=== PATIENT | female | born 1980 | race Caucasian/White ===

== ENCOUNTER 2019-04-27 02:45 | Emergency (ER) | payer BC ==
[2019-04-27] MEDS ORDERED: Fentanyl 100 MCG/2 ML VIAL ONE ×2 (03:13→08:55)
[2019-04-27] MEDS ORDERED: Ketorolac Tromethamine 30 MG/ML VIAL ONE (04:22)
[2019-04-27] MEDS ORDERED: Morphine 4 MG/ML VIAL ONE (04:22)
[2019-04-27] MEDS ORDERED: Gadobenate Dimeglumine 529 MG/1 ML (20ML VIAL) ONE (09:42)
--- NOTE | 2019-04-27 10:00 | MRI ---
MRI Lumbar Spine W WO Con History: [Leg pain.] Comparison: CT abdomen and pelvis prior day. Findings: No hydronephrosis. No retroperitoneal periaortic adenopathy. Paraspinal muscles are symmetr ic. No marrow infiltrative process. Asymmetric postsurgical change of the posterior paraspinal musculatur e. There is also edema within the left quadratus lumborum muscle. Conus medullaris terminates near the superior endplate of L2. Levels are as follows: L1/L2: Normal disc. No neural foraminal or spinal canal narrowing. L2/L3: Normal disc. Mild facet arthropathy. No neural foraminal or spinal canal narrowing. L3/L4: Normal disc. Moderate facet arthrosis. No neural foraminal or spinal canal narrowing. L4/L5: Low-grade broad-based posterior disc osteophyte complex. Moderate facet arthrosis. Moderate le ft and mild right neural foraminal narrowing. L5/S1: Prior discectomy change. Moderate facet arthropathy. There are effusions within both facet lisa nts. Anterior blocking screw. There is enhancing granulation tissue along the left exiting nerve root. Impression: Postsurgical change L5-S1 with enhancing granulation tissue along the left exiting nerve root. No migration of the discectomy spacers.
[2019-04-27] MEDS ORDERED: Dexamethasone 10 MG/ML VIAL ONE (10:25)
== END 2019-04-27 13:30 | disposition home or self-care (01) ==
LOC: ERS 02:45
DX: M96.89 Other intraoperative and postprocedural complications and disorders of the musculoskeletal system (principal); M54.16 Radiculopathy, lumbar region; K21.9 Gastro-esophageal reflux disease without esophagitis; F41.9 Anxiety disorder, unspecified
CPT/HCPCS: 72158; 96365; 96366; 96375; 96376; J1100; J1885; J2270; J3010

== ENCOUNTER 2023-12-21 10:24 | Emergency (ER) | payer BC ==
[2023-12-21] MEDS ORDERED: Acetaminophen 500 MG TAB ONE (11:43)
[2023-12-21 12:32] LABS: Bacteria/HPF 4+ HPF (None Seen); Bilirubin Negative (Negative); Blood, Urine Negative (Negative); CAUTI Indications for Culture Dysuria,urgency,freq; Clarity Clear (Clear); Glucose, Urine (Dipstick) Normal (Negative); Ketone, Urine Negative (Negative); Leukocyte Negative Leu/uL (Negative); Nitrite Negative (Negative); Protein, Urine (Dipstick) Negative (Neg-Trace); RBC/HPF 0-3 HPF (0-3); Specific Gravity, Urine 1.006 (1.002-1.036); Squamous Epithelial 0-3 HPF (0-3); Urobilinogen Normal mg/dL (Less than 2); WBC/HPF 0-3 HPF (0-3); pH, Urine 5.5 (5.0-9.0)
[2023-12-21 12:33] LABS: #Eosinphils 0.1 thou/uL (0.0-0.7); #Monocytes 0.3 thou/uL (0.11-0.59); %Basophils 0.5 % (0.0-1.0); %Eosinophils 1.4 % (0.0-10.0); %Lymphocytes 22.1 % (21.0-51.0); %Monocytes 5.3 % (0.0-10.0); %Neutrophils 70.3 % (42.0-75.0); Hematocrit 30.3 % (36.0-47.0); Mean Corpuscular HGB CONC 29.7 g/dL (32.0-36.0); Mean Corpuscular Hemoglobin 20.5 pg (27.0-31.0); Mean Corpuscular Volume 68.9 fl (78.0-98.0); Mean Platelet Volume 9.2 fL (7.4-10.4); Platelet Count 196 10x3/uL (130-400); RBC Distribution Width 17.5 % (11.5-14.5); White Blood Cell (WBC) Count 5.7 10x3/uL (4.8-10.8)
[2023-12-21 12:34] LABS: Urine Culture Reflex No No
[2023-12-21 12:46] LABS: BHCG - Serum Negative (NEGATIVE); Pregs Control Background? CLEAR/WHITE (CLR/WHITE); Pregs Control Bar Appear? YES (CONTROL BAR)
[2023-12-21 13:02] LABS: ALT (SGPT) 13 U/L (8-55); AST (SGOT) 17 U/L (5-34); Albumin 4.7 g/dL (3.5-5.0); Alkaline Phosphatase 73 U/L (40-110); Anion Gap 13 mmol/L (10-20); BUN (Urea Nitrogen) 9 mg/dL (7.0-18.7); Bilirubin, Total 0.4 mg/dL (0.2-1.2); Calc. Creatinine Clearance 0 mL/min (70-130); Calcium 9.2 mg/dL (7.8-10.44); Carbon Dioxide 23 mmol/L (22-29); Chloride 108 mmol/L (98-107); Estimated GFR 88; Globulin 2.9 g/dL (2.4-3.5); Glucose 84 mg/dL (70-105); Lipase 22 U/L (8-78); Potassium 3.6 mmol/L (3.5-5.1); Protein, Total 7.6 g/dL (6.0-8.3); Sodium 140 mmol/L (136-145)
[2023-12-21 13:07] LABS: Anisocytosis SLIGHT = 6-15 cells HPF (0-5); CellaVision Operator ID LAB.MJL; Hypochromia SLIGHT = 6-15 cells HPF (0-5); Microcytosis SLIGHT = 6-15 cells HPF (0-5); Ovalocytes SLIGHT = 2-5 cells HPF (0-1); Platelet Adequacy Comment Platelets Normal; Polychromasia SLIGHT = 2-3 cells HPF (0-2)
[2023-12-21 13:18] LABS: Troponin I Less than 0.010 ng/mL (< 0.028)
[2023-12-21] MEDS ORDERED: Ketorolac Tromethamine 30 MG (1 mL) VIAL ONE (13:40)
[2023-12-21] MEDS ORDERED: Dicyclomine 20 MG/2 ML VIAL ONE (13:40)
== END 2023-12-21 14:03 | disposition home or self-care (01) ==
LOC: ERS 10:24
DX: R11.2 Nausea with vomiting, unspecified (principal); R10.13 Epigastric pain; Z55.6 Problems related to health literacy; Z98.84 Bariatric surgery status
CPT/HCPCS: 36415; 71045; 80053; 81001; 82306; 83690; 83880; 84425; 84443; 84484; 84703; 85025; 93005; 96372; J1885